=== PATIENT | female | born 1960 | race Caucasian/White ===

== ENCOUNTER → 2016-08-23 | Outpatient (REF) | payer BC ==
[2016-08-23 13:46] LABS: LUTEINIZING HORMONE 6.2 mIU/mL
[2016-08-23 13:48] LABS: ESTRADIOL 27.2 PG/ML
== END ==
LOC: M LAB REF 12:37
PROVIDERS: ATTEND Internal Medicine Medical Oncology
DX: C50.919 Malignant neoplasm of unspecified site of unspecified female breast (principal)

== ENCOUNTER 2017-02-17 05:56 | Day surgery (SDC) | payer BC ==
[~2017-02-17] VITALS: Ht 177.8 cm; Wt 136.1 kg
[2017-02-17] VITALS (8 sets, daily range): BP systolic 114–135; BP diastolic 56–63
[~2017-02-17 05:56] MED LIST: ASPI1TAB PO; BISO5TAB5 PO; CALC500T49 PO; GLUC1CAP9 PO; LEVO150T7 PO; MULT1TAB10 PO; OMEGCAP9 PO; TAMO20TA4 PO; TRIA37.53 PO
[2017-02-17] MEDS ORDERED: LR 1,000 ML IV SCH ×2 (06:15→11:30)
[2017-02-17 06:31] LABS: MEAN CORPUSCULAR HEMOGLOBIN 31.7 pg (27.0-33.0); MEAN CORPUSCULAR HGB CONC 34.1 g/dl (32.0-36.5); MEAN CORPUSCULAR VOLUME 92.8 fl (80.0-96.0); RED CELL DISTRIBUTION WIDTH 12.7 % (11.5-14.5); WHITE BLOOD COUNT 6.4 K/mm3 (4.0-10.0)
[2017-02-17] MEDS ORDERED: METHYLENE BLUE 0.5% (5MG/ML) 10 ML AMP (PROVAYBLUE)(Q9968 PER 1MG) As Ordered ONE (07:16)
[2017-02-17] MEDS ORDERED: SCOPOLAMINE 1.5 MG TRANSDERMAL As Ordered ONE (07:17)
[2017-02-17] MEDS ORDERED: LR 1,000 ML IV ONE (07:30)
[2017-02-17] MEDS ORDERED: SCOPOLAMINE 1.5 MG TRANSDERMAL TOP ONE (07:30)
[2017-02-17] MEDS ORDERED: LIDOCAINE 2% INJ 100 MG/5 ML SDV (FOR ANES.) As Ordered ONE (08:23)
[2017-02-17] MEDS ORDERED: KETOROLAC 60 MG/2 ML VIAL (J1885) As Ordered ONE (08:23)
[2017-02-17] MEDS ORDERED: MIDAZOLAM INJ 2 MG/2 ML VIAL (J2250) As Ordered ONE (08:23)
[2017-02-17] MEDS ORDERED: ONDANSETRON 4MG/2ML VIAL (J2405) As Ordered ONE (08:23)
[2017-02-17] MEDS ORDERED: HYDROmorphone HCL 2 MG/ML 1ML VIAL (J1170) As Ordered ONE (08:23)
[2017-02-17] MEDS ORDERED: fentaNYL 250 MCG/5 ML INJECTION (J3010) As Ordered ONE (08:23)
[2017-02-17] MEDS ORDERED: dexameTHASONE 4 MG/ML 1ML VIAL (J1100) As Ordered ONE (08:23)
[2017-02-17] MEDS ORDERED: PROPOFOL 200 MG/20 ML VIAL As Ordered ONE (08:23)
[2017-02-17] MEDS ORDERED: ROCURONIUM BROMIDE 50 MG/5 ML VIAL/SYRINGE As Ordered ONE ×2 (08:23→09:51)
[2017-02-17] MEDS ORDERED: METOCLOPRAMIDE INJ 10MG/2ML VIAL (J2765) As Ordered ONE (08:23)
[2017-02-17] MEDS ORDERED: NEOSTIGMINE 1MG/ML 5 ML SYRINGE (J2710) As Ordered ONE (08:33)
[2017-02-17] MEDS ORDERED: GLYCOPYRROLATE INJ 0.2 MG/ML 2 ML VIAL As Ordered ONE (08:33)
[2017-02-17] MEDS: DYAZIDE 37.5/25 CAP (TRIAM/HCTZ) PO SCH (09:00)
[2017-02-17] MEDS ORDERED: MEPERIDINE INJ 25 MG/ML VIAL (J2175) As Ordered ONE (11:12)
[2017-02-17] MEDS: MEPERIDINE INJ 25 MG/ML VIAL (J2175) IV PRN ×2 (11:20→13:29)
[2017-02-17] MEDS ORDERED: MORPHINE 1MG/ML IN 0.9% NACL 100ML IV BAG As Ordered ONE (11:27)
[2017-02-17] MEDS ORDERED: NALOXONE INJ 0.4 MG/1 ML VIAL (J2310) IV PRN (11:30)
[2017-02-17] MEDS ORDERED: IBUPROFEN 600 MG TAB PO PRN (11:30)
[2017-02-17] MEDS ORDERED: NORCO, ANEXSIA 5/325MG TABLET (HYDROcodone/ACETAMINOPHEN) PO PRN (11:30)
[2017-02-17] MEDS ORDERED: METOCLOPRAMIDE INJ 10MG/2ML VIAL (J2765) IV PRN (11:30)
[2017-02-17] MEDS ORDERED: ONDANSETRON 4MG/2ML VIAL (J2405) IV PRN (11:30)
[2017-02-17] MEDS ORDERED: fentaNYL 100 MCG/2 ML INJECTION (J3010) IV PRN (11:30)
[2017-02-17] MEDS ORDERED: EPIDURAL/PCA KEYS XX PRN (11:30)
[2017-02-17] MEDS ORDERED: MORPHINE 1MG/ML IN 0.9% NACL 100ML IV BAG IV PRN (11:30)
[2017-02-17] MEDS ORDERED: NALBUPHINE HCL 10 MG/ML AMP (J2300) IV PRN (11:30)
[2017-02-17] MEDS ORDERED: diphenhydrAMINE INJ 50MG/ML VIAL (J1200) IV PRN (11:30)
[2017-02-17] MEDS: LR 1,000 ML IV SCH ×2 (14:27→21:54)
[2017-02-18] VITALS: BP 125/67
[2017-02-18 04:00] VITALS: BP 126/61
[2017-02-18] MEDS ORDERED: LEVOTHYROXINE 150MCG TABLET (0.15MG) PO SCH (06:00)
[2017-02-18 06:57] LABS: MEAN CORPUSCULAR HEMOGLOBIN 32.7 pg (27.0-33.0); MEAN CORPUSCULAR HGB CONC 35.3 g/dl (32.0-36.5); MEAN CORPUSCULAR VOLUME 92.7 fl (80.0-96.0); RED CELL DISTRIBUTION WIDTH 12.9 % (11.5-14.5); WHITE BLOOD COUNT 8.5 K/mm3 (4.0-10.0)
[2017-02-18 08:00] VITALS: BP 132/62
[2017-02-18] MEDS: DYAZIDE 37.5/25 CAP (TRIAM/HCTZ) PO SCH (09:08)
[2017-02-18] MEDS ORDERED: MOTR200T44 PO (10:41)
[2017-02-18] MEDS ORDERED: LORT5TAB PO (10:42)
--- NOTE | 2017-02-19 07:23 | RO ---
DATE OF PROCEDURE: 02/17/2017 PREOPERATIVE DIAGNOSIS AND INDICATIONS FOR SURGERY: Bleeding and pain and failed abalation. Personal history of breast cancer. POSTOPERATIVE DIAGNOSES: Bleeding and pain and failed ablation. Personal history of breast cancer. PROCEDURE: Robotic assisted hysterectomy with bilateral salpingo-oophorectomy. SURGEON: Dr. Sophia Meyer CIRCULATION WORKER: Devika Huitron ANESTHESIA: General endotracheal anesthesia. INDICATION: Personal history of breast cancer. BRIEF DESCRIPTION OF PROCEDURE: Abeba was brought to the operating room where sufficient general endotracheal anesthesia was induced, and she was prepped and positioned in the usual sterile fashion with the weighted speculum placed and the cervical sutures for the uterine manipulator placed under great difficulty as the patient has a very long vagina with a narrow apex, but we were able to place the uterine manipulator and of course the Crystal with the ability to backfill and then turned our attention to the abdomen. A transverse semilunar incision was made below the umbilicus. Sharp and blunt dissection were continued through subcutaneous tissue to the level of the rectus fascia which was transversely incised and secured with the #0-Vicryl retention suture and the peritoneum then entered under direct visualization. Linda cannula was placed under direct visualization in an open laparoscopic technique and CO2 insufflation was then begun. After adequate CO2 insufflation the peritoneal cavity was visualized and there were shiny peritoneal surfaces throughout. There is no excrescence, ascites nor exudate. There were some very minor adhesions, especially along the right side and the anterior abdominal wall there is some fatty adhesions, these are pictured. I made it a little bit difficult to see for placement of the trocar, but there did not appear to be a hernia there or any bowel, just a layer of fat healing over something. The two left side and one right side port were placed and the patient was patient in Trendelenburg and attention turned to the robotic procedure. The minor adhesions to the descending colon were taken down on the left side using cold scissors and the infundibular pelvis was carefully isolated. This patient has a history of breast cancer. We isolated back the infundibulopelvic carefully to make sure that we got all of fallopian tube and fimbria and the ovary. We were also careful to avoid the ureters and so we isolated that infundibulopelvic, cauterized it, and transected it and carefully dissected out that ovary and tube and then turned out attention to the right side and did the same thing, then freed the round ligaments and the remainder of the broad and then used cautery on the uterine vasculature which is carefully controlled. We created the bladder flap anteriorly, again using cold scissors and the ability to back fill the bladder was there so we could make sure that we were well away from bladder and then carefully made the anterior colpotomy and worked our way using Monopolar cautery to transect the uterus away from the cervix. Following which the uterus was delivered. V-lock suture was used to close the vaginal cuff with two separate closures undertaken because there was a little oozing on the patients right side. We then watched this for a bit and went ahead and over-sewed it with Vicryl which resulted in good result and when I cauterized further back because we were clear of the ureter there but of course I was concerned that there might be a little progression of the cautery injury so we went ahead and sutured that with Vicryl and had a two layer closure of the cuff with V-lock, following which we had very good hemostasis and no evidence of bladder ureter injury. We went ahead and ended that procedure, letting the CO2 out and removing the instruments and closing the umbilical wound at the fascial layer with the #0-Vicryl retention sutures and the skin on all four wounds with #3-0 Vicryl and a subcuticular stitch. Dry sterile dressings were then applied. Estimated blood loss for the procedure is about 32 mL. Fluid replacement was crystalloid. Complications: None. Condition and disposition: Abeba tolerated the procedure well and was recovering in the recovery room in good condition.
== END 2017-02-18 11:25 | disposition home or self-care (01) ==
LOC: M SDC 05:56 → M PED 12:23 → M SDC 02-18 11:25
PROVIDERS: ATTEND Obstetrics & Gynecology
DX: N93.9 Abnormal uterine and vaginal bleeding, unspecified (principal); Z85.3 Personal history of malignant neoplasm of breast; E03.9 Hypothyroidism, unspecified; I10 Essential (primary) hypertension; E66.9 Obesity, unspecified; R32 Unspecified urinary incontinence; Z87.410 Personal history of cervical dysplasia; Z98.51 Tubal ligation status
CPT/HCPCS: 36415; 58571; 85027; 86850; 86900; 86901; 88307; J0690; J1100; J1170; J1885; J2175; J2250; J2405; J2710; J2765; J3010

== ENCOUNTER → 2017-09-02 | Outpatient (REF) | payer BC ==
[2017-09-02 15:24] LABS: LUTEINIZING HORMONE 4.5 mIU/mL
[2017-09-02 15:25] LABS: FOLLICLE STIMULATING HORMONE 12.7 mIU/mL
== END ==
LOC: M LAB REF 12:13
DX: C50.919 Malignant neoplasm of unspecified site of unspecified female breast (principal)
CPT/HCPCS: 83001

== ENCOUNTER → 2019-09-18 | Outpatient (CLI) | payer BC ==
[~2019-09-18] MED LIST changes: -ASPI1TAB PO; +ASPI81TA26 PO; +BISO5TAB14 PO; -BISO5TAB5 PO; +CALC500C16 PO; +EXEM25TA PO; +GLUC500C37 PO; +LORT5TAB PO; +MOTR200T44 PO; +MULTCAP PO; -TAMO20TA4 PO; +TAMO20TA8 PO
--- NOTE | 2019-09-18 21:12 | ECHO ---
DATE OF PROCEDURE: 09/18/2019 REFERRING PHYSICIAN: Dr. Jaiden Brody PATIENT LOCATION: Outpatient. REASON FOR STUDY: Breast cancer, chemotherapy drug monitoring. 2D MEASUREMENTS: IVS: 1.3 cm LV: 4.6 c m LVPW: 1.3 cm LA: 4.3 cm Aorta: 2.9 cm IVC: 2.1 cm DOPPLER MEASUREMENTS: Peak velocity across the aortic valve: 1.5 meters second Peak velocity across the LVOT: 1.0 meters per second Mitral E: 0.94, Mitral A: 1.1 with a ratio of 0.9 2D COMMENTS: 1. Normal left ventricular size with mildly increased left ventricular wall thickness. Left ventricular systolic function is normal, estimated at 60-65%. 2. Mildly dilated left atrium at 4.3 cm. Normal right atrium and right ventricle. 3. The atrial septum appeared to be normal without evidence of defect or shunt. 4. Normal aortic root. 5. A small pericardial effusion was noted, no evidence of cardiac tamponade. 6. Mildly calcified aortic valve with normal leaflet excursion. Normal mitral valve, tricuspid valve, and pulmonic valve. The proximal pulmonary artery branches also appeared to be normal. 7. The inferior vena cava was mildly enlarged, central venous pressure might be elevated. DOPPLER: No significant valvular abnormalities detected. Abnormal relaxation pattern was noted across the mitral valve leaflets as well as the mitral valve annulus consistent with some features of grade 1 left ventricular diastolic dysfunction. IMPRESSION: 1. Normal global left ventricular systolic function with mild concentric left ventricular hypertrophy. There are some features of grade 1 left ventricular diastolic dysfunction manifested by abnormal relaxation. 2. Aortic valve sclerosis without stenosis or aortic regurgitation. 3. A small pericardial effusion was noted, no evidence of cardiac tamponade. 4. No valvular abnormalities detected. 5. Global Longitudinal Strain/GLS was normal at -19.2%.
== END ==
LOC: M CARPUL 08:12
PROVIDERS: ATTEND Internal Medicine Hematology
DX: C50.919 Malignant neoplasm of unspecified site of unspecified female breast (principal)

== ENCOUNTER → 2021-09-11 | Outpatient (CLI) | payer BC ==
[~2021-09-11] MED LIST changes: +ATOR1TAB21 PO; +CARV3.12 PO; +MULT-90 PO; +VALS1TAB67 PO; +VALS1TAB68 PO
== END ==
LOC: M WHC 10:25
PROVIDERS: ATTEND Internal Medicine Hematology & Oncology
DX: Z85.3 Personal history of malignant neoplasm of breast (principal); Z79.811 Long term (current) use of aromatase inhibitors

== ENCOUNTER → 2022-05-07 | Outpatient (CLI) | payer BC ==
[~2022-05-07] MED LIST changes: -TRIA37.53 PO; +TRIA37.577 PO
== END ==
LOC: M EKG 08:47
PROVIDERS: ATTEND Orthopaedic Surgery
DX: M23.231 Derangement of other medial meniscus due to old tear or injury, right knee (principal); I45.10 Unspecified right bundle-branch block

== ENCOUNTER → 2023-12-23 | Outpatient (CLI) | payer BC | LOC: M WHC 14:36 | PROVIDERS: ATTEND Nurse Practitioner | DX: Z79.899 Other long term (current) drug therapy (principal) ==